=== PATIENT | female | born 1985 | race Caucasian/White ===

== ENCOUNTER 2020-10-05 20:33 | Emergency (ER) | payer OTHER ==
[2020-10-05 20:45] VITALS: RESP 18; TEMP 98.3
[2020-10-05] MEDS ORDERED: HYDROmorphone 0.5 MG/0.5 ML SYRINGE IVP STA ×2 (21:03→23:07)
[2020-10-05] MEDS ORDERED: SODIUM CHLORIDE 0.9% 1,000 ML IV STA (21:03)
[2020-10-05] MEDS ORDERED: KETOROLAC 15 MG/ML 1 ML VIAL IVP STA (21:03)
[2020-10-05] MEDS ORDERED: ONDANSETRON 4 MG/2 ML VIAL IVP STA (21:03)
--- NOTE | 2020-10-05 21:06 | ED ---
General Adult HPI - General Chief complaint: Abdominal Pain Stated complaint: abd cramps Time Seen by Provider: 10/05/20 20:46 Source: patient Mode of arrival: ambulatory Limitations: no limitations - History of Present Illness Initial comments: 35-year-old female patient presents to the emergency department today for evaluation of left lower abdominal pain. Patient states the pain started yesterday as a dull ache and has gradually worsened. Patient states today the pain is out of control. Denies radiation to her back. Denies any dysuria, hematuria, urinary frequency, urinary urgency. Denies abnormal vaginal bleeding or discharge. States she is in a monogamous relationship and is not concerned for sexually transmitted infections. Denies fever or chills but denies nausea or vomiting. Denies any constipation or diarrhea. States that she has had history of ovarian cyst with rupture she is concerned that may be going on again. She does have her tubes tied and does have 3 children. Patient denies any recent rash, cough, shortness of breath, chest pain, numbness, tingling, dizziness, weakness, headache, visual changes, or any other complaints. - Related Data Home Medications Medication Instructions Recorded Confirmed No Known Home Medications 10/05/20 10/05/20 Allergies Allergy/AdvReac Type Severity Reaction Status Date / Time No Known Allergies Allergy Verified 10/05/20 21:51 Review of Systems ROS Statement: Those systems with pertinent positive or pertinent negative responses have been documented in the HPI. ROS Other: All systems not noted in ROS Statement are negative. Past Medical History Past Medical History: No Reported History History of Any Multi-Drug Resistant Organisms: None Reported Past Surgical History: Section, Tubal Ligation Additional Past Surgical History / Comment(s): ovarian cyst, leep procedure. Smoking Status: Current every day smoker Past Alcohol Use History: None Reported Past Drug Use History: None Reported General Exam Limitations: no limitations General appearance: alert, in no apparent distress, other (this is a well- developed, well-nourished adult female patient in no acute distress.) Respiratory exam: Present: normal lung sounds bilaterally. Absent: respiratory distress, wheezes, rales, rhonchi, stridor Cardiovascular Exam: Present: regular rate, normal rhythm, normal heart sounds. Absent: systolic murmur, diastolic murmur, rubs, gallop, clicks GI/Abdominal exam: Present: soft, tenderness (left lower quadrant), normal bowel sounds. Absent: distended, guarding, rebound, rigid Neurological exam: Present: alert, oriented X3, CN II-XII intact Psychiatric exam: Present: normal affect, normal mood Skin exam: Present: warm, dry, intact, normal color. Absent: rash Course Vital Signs 10/05/20 10/05/20 20:42 22:45 Temperature 98.3 F 98.3 F Pulse Rate 98 67 Respiratory 18 18 Rate Blood Pressure 147/86 116/75 O2 Sat by Pulse 99 100 Oximetry Medical Decision Making - Medical Decision Making 35-year-old female patient presents to the emergency department today for evaluation of left lower quadrant abdominal pain. Physical examination did reveal some tenderness over the left lower quadrant pelvic region. She denied fever, diarrhea, vomiting, abnormal vaginal bleeding or discharge. Denied urin brandi symptoms. Labs reviewed and were unremarkable. Transvaginal ultrasound was obtained due to patient's history of cysts and showed no evidence for solid adnexal mass. There is some free fluid in the cul-de-sac. Upon reevaluation patient is resting comfortably in bed. Did discuss all findings and results with her. We did discuss possibility of intra-abdominal infection more specifically diverticulitis given her area of pain. As she is currently afebrile, white blood cell count is normal, and still feeling somewhat better she does choose to go home and monitor symptoms. She is instructed to follow up with her primary care physician for recheck in 1-2 days. We did discuss return parameters and great detail. She verbalizes understanding and agrees with this plan. Case discussed with my attending Dr. Vanegas. - Lab Data Result diagrams: 10/05/20 21:13 10/05/20 21:13 Lab Results 10/05/20 10/05/20 10/05/20 Range/Units 21:13 21:13 21:13 WBC 10.6 (3.8-10.6) k/uL RBC 5.06 (3.80-5.40) m/uL Hgb 14.6 (11.4-16.0) gm/dL Hct 44.2 (34.0-46.0) % MCV 87.3 (80.0-100.0) fL MCH 28.8 (25.0-35.0) pg MCHC 33.0 (31.0-37.0) g/dL RDW 13.3 (11.5-15.5) % Plt Count 188 (150-450) k/uL MPV 7.3 Neutrophils % 68 % Lymphocytes % 22 % Monocytes % 5 % Eosinophils % 3 % Basophils % 0 % Neutrophils # 7.2 (1.3-7.7) k/uL Lymphocytes # 2.3 (1.0-4.8) k/uL Monocytes # 0.6 (0-1.0) k/uL Eosinophils # 0.4 (0-0.7) k/uL Basophils # 0.1 (0-0.2) k/uL Sodium (137-145) mmol/L Potassium (3.5-5.1) mmol/L Chloride (98-107) mmol/L Carbon Dioxide (22-30) mmol/L Anion Gap mmol/L BUN (7-17) mg/dL Creatinine (0.52-1.04) mg/dL Est GFR (CKD-EPI)AfAm (>60 ml/min/1.73 sqM) Est GFR (CKD-EPI)NonAf (>60 ml/min/1.73 sqM) Glucose (74-99) mg/dL Plasma Lactic Acid [place] (0.7-2.0) mmol/L Calcium (8.4-10.2) mg/dL Total Bilirubin (0.2-1.3) mg/dL AST (14-36) U/L ALT (4-34) U/L Alkaline Phosphatase (38-126) U/L Total Protein (6.3-8.2) g/dL Albumin (3.5-5.0) g/dL Amylase (30-110) U/L Lipase (23-300) U/L Urine Color Yellow Urine Appearance Cloudy H (Clear) Urine pH 7.0 (5.0-8.0) Ur Specific [place] 1.021 (1.001-1.035) Urine Protein Negative (Negative) Urine Glucose (UA) Negative (Negative) Urine Ketones Negative (Negative) Urine Blood Negative (Negative) Urine Nitrite Negative (Negative) Urine Bilirubin Negative (Negative) Urine Urobilinogen 3.0 (<2.0) mg/dL Ur Leukocyte Esterase Negative (Negative) Urine RBC 1 (0-5) /hpf Urine WBC 1 (0-5) /hpf Ur Squamous Epith Cells 13 H (0-4) /hpf Urine Mucus Rare H (None) /hpf Urine HCG, Qual Not Detected (Not Detectd) 10/05/20 10/05/20 Range/Units 21:13 21:13 WBC (3.8-10.6) k/uL RBC (3.80-5.40) m/uL Hgb (11.4-16.0) gm/dL Hct (34.0-46.0) % MCV (80.0-100.0) fL MCH (25.0-35.0) pg MCHC (31.0-37.0) g/dL RDW (11.5-15.5) % Plt Count (150-450) k/uL MPV Neutrophils % % Lymphocytes % % Monocytes % % Eosinophils % % Basophils % % Neutrophils # (1.3-7.7) k/uL Lymphocytes # (1.0-4.8) k/uL Monocytes # (0-1.0) k/uL Eosinophils # (0-0.7) k/uL Basophils # (0-0.2) k/uL Sodium 138 (137-145) mmol/L Potassium 4.0 (3.5-5.1) mmol/L Chloride 107 (98-107) mmol/L Carbon Dioxide 21 L (22-30) mmol/L Anion Gap 10 mmol/L BUN 13 (7-17) mg/dL Creatinine 0.90 (0.52-1.04) mg/dL Est GFR (CKD-EPI)AfAm >90 (>60 ml/min/1.73 sqM) Est GFR (CKD-EPI)NonAf 84 (>60 ml/min/1.73 sqM) Glucose 105 H (74-99) mg/dL Plasma Lactic Acid [place] 1.0 (0.7-2.0) mmol/L Calcium 8.7 (8.4-10.2) mg/dL Total Bilirubin 0.3 (0.2-1.3) mg/dL AST 18 (14-36) U/L ALT 19 (4-34) U/L Alkaline Phosphatase 48 (38-126) U/L Total Protein 6.8 (6.3-8.2) g/dL Albumin 3.9 (3.5-5.0) g/dL Amylase 44 (30-110) U/L Lipase 204 (23-300) U/L Urine Color Urine Appearance (Clear) Urine pH (5.0-8.0) Ur Specific [place] (1.001-1.035) Urine Protein (Negative) Urine Glucose (UA) (Negative) Urine Ketones (Negative) Urine Blood (Negative) Urine Nitrite (Negative) Urine Bilirubin (Negative) Urine Urobilinogen (<2.0) mg/dL Ur Leukocyte Esterase (Negative) Urine RBC (0-5) /hpf Urine WBC (0-5) /hpf Ur Squamous Epith Cells (0-4) /hpf Urine Mucus (None) /hpf Urine HCG, Qual (Not Detectd) - Radiology Data Radiology results: report reviewed Transvaginal ultrasound was obtained. Report reviewed in its entirety. Impression by Dr. Veronica shows some free fluid in the cul-de-sac. Cervical cyst noted. No sign of lid adnexal mass. No evidence of left-sided ovarian torsion. Right ovary not well seen. No evidence of endometrial mass. Endometrium not well seen. Disposition Clinical Impression: Abdominal pain Disposition: HOME SELF-CARE Condition: Good Instructions (If sedation given, give patient instructions): Abdominal Pain (ED) Additional Instructions: Take medications as directed. Follow up with your primary care physician for recheck in 1-2 days. Return to the emergency department for further evaluation for any new, worsening, or concerning symptoms. Is patient prescribed a controlled substance at d/c from ED?: No Referrals: Amadeo Nieves DO [Primary Care Provider] - 1-2 days Time of Disposition: 23:07
[2020-10-05 21:35] LABS: Basophils # (A) 0.1 k/uL (0-0.2); Basophils % (A) 0 %; Eosinophils # (A) 0.4 k/uL (0-0.7); Eosinophils % (A) 3 %; HCT 44.2 % (34.0-46.0); HGB 14.6 gm/dL (11.4-16.0); Lymphocytes # (A) 2.3 k/uL (1.0-4.8); Lymphocytes % (A) 22 %; MCH 28.8 pg (25.0-35.0); MCV 87.3 fL (80.0-100.0); Mean Platelet Volume 7.3; Monocytes # (A) 0.6 k/uL (0-1.0); Monocytes % (A) 5 %; Neutrophils # (A) 7.2 k/uL (1.3-7.7); Neutrophils % (A) 68 %; Platelet Count 188 k/uL (150-450); RBC 5.06 m/uL (3.80-5.40); RDW 13.3 % (11.5-15.5); WBC 10.6 k/uL (3.8-10.6)
[2020-10-05 21:38] LABS: Appearance,Urine Cloudy (Clear); Bilirubin,Urine Negative (Negative); Blood,Urine Negative (Negative); Color,Urine Yellow; Glucose,Urine (UA) Negative (Negative); Ketones,Urine Negative (Negative); Leukocyte Esterase,Urine Negative (Negative); Mucus,Urine Rare /hpf; Nitrite,Urine Negative (Negative); Protein,Urine Negative (Negative); RBC,Urine 1 /hpf (0-5); Specific Gravity,Urine 1.021 (1.001-1.035); Squamous Epithelial Cell,Urine 13 /hpf (0-4); WBC,Urine 1 /hpf (0-5)
[2020-10-05 21:51] LABS: ALT 19 U/L (4-34); AST 18 U/L (14-36); African American GFR (CKD) >90 (>60 ml/min/1.73 sqM); Albumin 3.9 g/dL (3.5-5.0); Alkaline Phosphatase 48 U/L (38-126); Amylase 44 U/L (30-110); Anion Gap 10 mmol/L; Blood Urea Nitrogen 13 mg/dL (7-17); Calcium 8.7 mg/dL (8.4-10.2); Carbon Dioxide 21 mmol/L (22-30); Chloride 107 mmol/L (98-107); Glucose 105 mg/dL (74-99); Lipase 204 U/L (23-300); Non-African American GFR(CKD) 84 (>60 ml/min/1.73 sqM); Sodium 138 mmol/L (137-145); Total Bilirubin 0.3 mg/dL (0.2-1.3); Total Protein 6.8 g/dL (6.3-8.2)
--- NOTE | 2020-10-05 22:50 | US ---
EXAMINATION TYPE: US transvaginal DATE OF EXAM: 10/05/2020 COMPARISON: NONE CLINICAL HISTORY: Left pelvic pain; hx cysts. Left pelvic pain x 2 days. Hx 3 C-Sections, tubal ligat ion, LEEP x 2, ablation 2011 (LMP 2011), Cyst removal from left ovary.. TECHNIQUE: Transvaginal (TV). Date of LMP: 2011 EXAM MEASUREMENTS: Uterus: 7.8 x 4.2 x 3.3 cm Endometrial Stripe: Not well seen. Right Ovary: Not visualized. Left Ovary: 3.3 x 2.1 x 2.9 cm. 1. Uterus: Anteverted. Appears to be heterogeneous. Complex area seen lower uterus/cervix measuring 1.1 x 1.1 x 1.2 cm. Anechoic area seen in cervix measuring 0.9 x 1.0 x 0.9 cm. Septated anechoic area seen mid uterus measuring 1.3 x 1.2 x 0.7 cm. Anechoic area seen upper left uterus measuring 0.9 x 1 .1 x 0.9 cm. 2. Endometrium: Not well seen. 3. Right Ovary: Not seen. 4. Left Ovary: Slightly hyperechoic-isoechoic area with peripheral vascularity seen measuring 1.6 x 1 .6 x 1.2 cm. Anechoic area seen measuring 1.0 x 0.9 x 0.8 cm. Spectral, color and waveform doppler imaging shows arterial and venous flow within the left ovary. Right ovary not seen. 5. Bilateral Adnexa: Anechoic fluid-appearing area seen in left adnexa adjacent to the left ovary me asuring 1.1 x 1.3 x 0.7 cm. 6. Posterior cul-de-sac: Fluid seen measuring 2.1 x 2.2 x 1.3 cm. IMPRESSION: There is some free fluid in the cul-de-sac. Cervical cysts noted. No solid adnexal mass. No evidence of left-sided ovarian torsion. Right ovary not well seen. No evidence of endometrial mass. Endometriu m not well seen.
[2020-10-05] MEDS ORDERED: ACET/COD 300 MG/30 MG STARTER PACK 6 TAB BTL PO STA (23:07)
[2020-10-05 23:22] VITALS: BP 123/65; PULSE 77
== END 2020-10-05 23:21 | disposition home or self-care (01) ==
LOC: EC 20:33
DX: R10.32 Left lower quadrant pain (principal); R10.814 Left lower quadrant abdominal tenderness; F17.200 Nicotine dependence, unspecified, uncomplicated
CPT/HCPCS: 36415; 80053; 82150; 83605; 83690; 85025; 81001; 81025; 93976; 76830; 99284; 96374; 96375 ×2; 96376; 96361 ×2; J2405; J1885; J1170

== ENCOUNTER → 2021-01-27 | Outpatient (CLI) | payer OTHER | END | disposition home or self-care (01) | LOC: LABWHC1 08:26 | PROVIDERS: ATTEND Nurse Practitioner Adult Health | DX: Z53.9 Procedure and treatment not carried out, unspecified reason (principal) ==

== ENCOUNTER 2021-02-28 15:17 | Emergency (ER) | payer OTHER ==
[2021-02-28 15:21] VITALS: RESP 16
[2021-02-28] MEDS ORDERED: SODIUM CHLORIDE 0.9% 1,000 ML IV STA (15:32)
[2021-02-28] MEDS ORDERED: ONDANSETRON 4 MG/2 ML VIAL IVP STA (15:32)
--- NOTE | 2021-02-28 15:39 | ED ---
Abdominal Pain HPI - General Chief Complaint: Abdominal Pain Stated Complaint: Abd Pain Source: patient, RN notes reviewed, old records reviewed Mode of arrival: ambulatory Limitations: no limitations - History of Present Illness Initial Comments: 35-year-old white female patient, alert and oriented 4, presents to the emergency room with complaints of 2 days of. Umbilical and right sided abdominal pain. Patient states that 2 days ago she awoke with. Umbilical pain and vomiting. For the rest of the day she had a sharp pain on the right mid side of her abdomen. Patient states that today she went to work but had to leave because the pain. She states that laying flat makes it worse nothing makes it feel better. She denies any fevers but does state that she has some nausea. She describes the pain as sharp, states that the ride to the hospital caused increasing pain with every bump. She does have history of ovarian cysts but this is not the same pain. Patient is a pack-a-day smoker. MD Complaint: abdominal pain -: days(s) (2) Location: periumbilical, RUQ, RLQ Radiation: none Severity scale (1-10): 9 Quality: sharp Consistency: constant Improves With: nothing Worsens With: other (lying flat) Associated Symptoms: nausea, vomiting - Related Data Previous Rx's Medication Instructions Recorded Ibuprofen [Motrin] 600 mg PO Q8HR PRN #30 tab 02/28/21 Allergies Allergy/AdvReac Type Severity Reaction Status Date / Time No Known Allergies Allergy Verified 02/28/21 15:19 Review of Systems ROS Statement: Those systems with pertinent positive or pertinent negative responses have been documented in the HPI. ROS Other: All systems not noted in ROS Statement are negative. Past Medical History Past Medical History: No Reported History History of Any Multi-Drug Resistant Organisms: None Reported Past Surgical History: Section, Tubal Ligation Additional Past Surgical History / Comment(s): ovarian cyst, leep procedure. Past Psychological History: Bipolar Smoking Status: Current every day smoker Past Alcohol Use History: None Reported Past Drug Use History: None Reported General Exam Limitations: no limitations General appearance: alert, in no apparent distress Head exam: Present: atraumatic, normocephalic, normal inspection Eye exam: Present: normal appearance, PERRL, EOMI. Absent: scleral icterus, conjunctival injection, periorbital swelling ENT exam: Present: normal exam, mucous membranes dry Neck exam: Present: normal inspection, full ROM. Absent: tenderness, meningismus, lymphadenopathy, thyromegaly Respiratory exam: Present: normal lung sounds bilaterally. Absent: respiratory distress, wheezes, rales, rhonchi, stridor, chest wall tenderness, accessory muscle use, decreased breath sounds, prolonged expiratory Cardiovascular Exam: Present: regular rate, normal rhythm, normal heart sounds. Absent: systolic murmur, diastolic murmur, rubs, gallop, clicks GI/Abdominal exam: Present: soft, tenderness (Right upper and right lower quadrant), normal bowel sounds. Absent: distended, guarding, rigid, mass, hernia Extremities exam: Present: full ROM, normal capillary refill. Absent: tenderness, pedal edema, calf tenderness Back exam: Present: normal inspection, full ROM. Absent: tenderness, CVA tenderness (R), CVA tenderness (L), muscle spasm, paraspinal tenderness, vertebral tenderness, rash noted Neurological exam: Present: alert, oriented X3, CN II-XII intact Psychiatric exam: Present: normal affect, normal mood Skin exam: Present: warm, dry, intact, normal color. Absent: rash, cyanosis, diaphoretic, erythema, petechiae, pallor, mottled Course Vital Signs 02/28/21 15:19 Temperature 97.5 F L Pulse Rate 88 Respiratory 16 Rate Blood Pressure 136/88 O2 Sat by Pulse 99 Oximetry Medical Decision Making - Medical Decision Making Hemoglobin and hematocrit is stable at 15 and 46 respectively, WBC count is 9.8, electrolytes are within normal limits. There is a 2.1 cm right ovarian cyst and a right renal calculi that is not obstructing. This is likely the cause of the patient's right-sided abdominal pain. She will be prescribed Motrin and directed to follow up with her primary care doctor and also given a referral for urology. She does state that she had a kidney stone when she was 16 years old. Case discussed with Dr. Lopez. - Lab Data Result diagrams: 02/28/21 15:38 02/28/21 15:38 Lab Results 02/28/21 02/28/21 02/28/21 Range/Units 15:38 15:38 15:38 WBC 9.8 (3.8-10.6) k/uL RBC 5.41 H (3.80-5.40) m/uL Hgb 15.2 (11.4-16.0) gm/dL Hct 46.5 H (34.0-46.0) % MCV 86.0 (80.0-100.0) fL MCH 28.0 (25.0-35.0) pg MCHC 32.6 (31.0-37.0) g/dL RDW 13.5 (11.5-15.5) % Plt Count 184 (150-450) k/uL MPV 7.6 Neutrophils % 73 % Lymphocytes % 18 % Monocytes % 5 % Eosinophils % 2 % Basophils % 1 % Neutrophils # 7.2 (1.3-7.7) k/uL Lymphocytes # 1.7 (1.0-4.8) k/uL Monocytes # 0.5 (0-1.0) k/uL Eosinophils # 0.2 (0-0.7) k/uL Basophils # 0.1 (0-0.2) k/uL PT 9.7 (9.0-12.0) sec INR 0.9 (<1.2) APTT 23.8 (22.0-30.0) sec Sodium (137-145) mmol/L Potassium (3.5-5.1) mmol/L Chloride (98-107) mmol/L Carbon Dioxide (22-30) mmol/L Anion Gap mmol/L BUN (7-17) mg/dL Creatinine (0.52-1.04) mg/dL Est GFR (CKD-EPI)AfAm (>60 ml/min/1.73 sqM) Est GFR (CKD-EPI)NonAf (>60 ml/min/1.73 sqM) Glucose (74-99) mg/dL Calcium (8.4-10.2) mg/dL Total Bilirubin (0.2-1.3) mg/dL AST (14-36) U/L ALT (4-34) U/L Alkaline Phosphatase (38-126) U/L Total Protein (6.3-8.2) g/dL Albumin (3.5-5.0) g/dL Amylase (30-110) U/L Lipase (23-300) U/L Urine Color Yellow Urine Appearance Cloudy H (Clear) Urine pH 6.5 (5.0-8.0) Ur Specific [place] 1.024 (1.001-1.035) Urine Protein Trace H (Negative) Urine Glucose (UA) Negative (Negative) Urine Ketones Negative (Negative) Urine Blood Negative (Negative) Urine Nitrite Negative (Negative) Urine Bilirubin Negative (Negative) Urine Urobilinogen 2.0 (<2.0) mg/dL Ur Leukocyte Esterase Negative (Negative) Urine RBC 2 (0-5) /hpf Urine WBC 1 (0-5) /hpf Ur Squamous Epith Cells 23 H (0-4) /hpf Urine Mucus Moderate H (None) /hpf Urine HCG, Qual (Not Detectd) 02/28/21 02/28/21 Range/Units 15:38 15:38 WBC (3.8-10.6) k/uL RBC (3.80-5.40) m/uL Hgb (11.4-16.0) gm/dL Hct (34.0-46.0) % MCV (80.0-100.0) fL MCH (25.0-35.0) pg MCHC (31.0-37.0) g/dL RDW (11.5-15.5) % Plt Count (150-450) k/uL MPV Neutrophils % % Lymphocytes % % Monocytes % % Eosinophils % % Basophils % % Neutrophils # (1.3-7.7) k/uL Lymphocytes # (1.0-4.8) k/uL Monocytes # (0-1.0) k/uL Eosinophils # (0-0.7) k/uL Basophils # (0-0.2) k/uL PT (9.0-12.0) sec INR (<1.2) APTT (22.0-30.0) sec Sodium 140 (137-145) mmol/L Potassium 4.2 (3.5-5.1) mmol/L Chloride 105 (98-107) mmol/L Carbon Dioxide 25 (22-30) mmol/L Anion Gap 10 mmol/L BUN 9 (7-17) mg/dL Creatinine 0.79 (0.52-1.04) mg/dL Est GFR (CKD-EPI)AfAm >90 (>60 ml/min/1.73 sqM) Est GFR (CKD-EPI)NonAf >90 (>60 ml/min/1.73 sqM) Glucose 106 H (74-99) mg/dL Calcium 9.3 (8.4-10.2) mg/dL Total Bilirubin 0.2 (0.2-1.3) mg/dL AST 17 (14-36) U/L ALT 17 (4-34) U/L Alkaline Phosphatase 56 (38-126) U/L Total Protein 7.1 (6.3-8.2) g/dL Albumin 4.3 (3.5-5.0) g/dL Amylase 57 (30-110) U/L Lipase 189 (23-300) U/L Urine Color Urine Appearance (Clear) Urine pH (5.0-8.0) Ur Specific [place] (1.001-1.035) Urine Protein (Negative) Urine Glucose (UA) (Negative) Urine Ketones (Negative) Urine Blood (Negative) Urine Nitrite (Negative) Urine Bilirubin (Negative) Urine Urobilinogen (<2.0) mg/dL Ur Leukocyte Esterase (Negative) Urine RBC (0-5) /hpf Urine WBC (0-5) /hpf Ur Squamous Epith Cells (0-4) /hpf Urine Mucus (None) /hpf Urine HCG, Qual Not Detected (Not Detectd) Disposition Clinical Impression: Ovarian cyst, Kidney stone on right side Disposition: HOME SELF-CARE Condition: Fair Instructions (If sedation given, give patient instructions): Ovarian Cyst (ED), Kidney Stones (ED) Additional Instructions: Take Motrin every 6-8 hours as needed for pain follow-up with the primary care doctor in 1 week. Prescriptions: Ibuprofen [Motrin] 600 mg PO Q8HR PRN #30 tab PRN Reason: Pain Is patient prescribed a controlled substance at d/c from ED?: No Referrals: Jackelin Alejandro NPC [Primary Care Provider] - 1-2 days Harris Collier MD [STAFF PHYSICIAN] - 1-2 days Time of Disposition: 17:02
[2021-02-28 15:59] LABS: Appearance,Urine Cloudy (Clear); Bilirubin,Urine Negative (Negative); Blood,Urine Negative (Negative); Color,Urine Yellow; Glucose,Urine (UA) Negative (Negative); Ketones,Urine Negative (Negative); Leukocyte Esterase,Urine Negative (Negative); Mucus,Urine Moderate /hpf; Nitrite,Urine Negative (Negative); PH, Urine 6.5 (5.0-8.0); Protein,Urine Trace (Negative); RBC,Urine 2 /hpf (0-5); Specific Gravity,Urine 1.024 (1.001-1.035); Squamous Epithelial Cell,Urine 23 /hpf (0-4); WBC,Urine 1 /hpf (0-5)
[2021-02-28 16:06] LABS: ALT 17 U/L (4-34); AST 17 U/L (14-36); African American GFR (CKD) >90 (>60 ml/min/1.73 sqM); Albumin 4.3 g/dL (3.5-5.0); Alkaline Phosphatase 56 U/L (38-126); Amylase 57 U/L (30-110); Anion Gap 10 mmol/L; Blood Urea Nitrogen 9 mg/dL (7-17); Calcium 9.3 mg/dL (8.4-10.2); Carbon Dioxide 25 mmol/L (22-30); Chloride 105 mmol/L (98-107); Glucose 106 mg/dL (74-99); Lipase 189 U/L (23-300); Non-African American GFR(CKD) >90 (>60 ml/min/1.73 sqM); Potassium 4.2 mmol/L (3.5-5.1); Sodium 140 mmol/L (137-145); Total Bilirubin 0.2 mg/dL (0.2-1.3); Total Protein 7.1 g/dL (6.3-8.2)
[2021-02-28 16:08] LABS: Basophils # (A) 0.1 k/uL (0-0.2); Basophils % (A) 1 %; Eosinophils # (A) 0.2 k/uL (0-0.7); Eosinophils % (A) 2 %; HCT 46.5 % (34.0-46.0); HGB 15.2 gm/dL (11.4-16.0); Lymphocytes # (A) 1.7 k/uL (1.0-4.8); Lymphocytes % (A) 18 %; MCHC 32.6 g/dL (31.0-37.0); Mean Platelet Volume 7.6; Monocytes # (A) 0.5 k/uL (0-1.0); Monocytes % (A) 5 %; Neutrophils # (A) 7.2 k/uL (1.3-7.7); Neutrophils % (A) 73 %; Platelet Count 184 k/uL (150-450); RBC 5.41 m/uL (3.80-5.40); RDW 13.5 % (11.5-15.5); WBC 9.8 k/uL (3.8-10.6)
[2021-02-28 16:11] LABS: INR 0.9 (<1.2); Partial Thromboplastin Time 23.8 sec (22.0-30.0); Prothrombin Time 9.7 sec (9.0-12.0)
--- NOTE | 2021-02-28 16:43 | CT ---
EXAMINATION TYPE: CT abdomen pelvis wo con DATE OF EXAM: 02/28/2021 COMPARISON: None available. HISTORY: periumbilical to right flank pain CT DLP: 1107.9 mGycm Automated exposure control for dose reduction was used. TECHNIQUE: Helical acquisition of images was performed from the lung bases through the pelvis. FINDINGS: LUNG BASES: No significant abnormality is appreciated. LIVER/GB: No acute abnormality is appreciated. Hepatomegaly. PANCREAS: No significant abnormality is seen. SPLEEN: No significant abnormality is seen. ADRENALS: No significant abnormality is seen. KIDNEYS: Punctate nonobstructing right renal calculus. No bilateral hydronephrosis or left nephrolith iasis. FREE AIR: No free air is visualized RETROPERITONEAL ADENOPATHY: None visualized REPRODUCTIVE ORGANS: No significant abnormality is seen URINARY BLADDER: Partially decompressed with mild wall thickening. PELVIC ADENOPATHY: None visualized. OSSEOUS STRUCTURES: No significant abnormality is seen. BOWEL: No significant abnormality is seen. Normal appendix. OTHER: 2.1 cm simple right ovarian cyst and smaller similar left ovarian cyst present. IMPRESSION: NO ACUTE ABNORMALITY. INCIDENTAL SIMPLE RIGHT OVARIAN CYSTS. NONOBSTRUCTING PUNCTATE RIGHT RENAL CALCULUS.
[2021-02-28] MEDS ORDERED: KETOROLAC 15 MG/ML 1 ML VIAL IVP STA (17:00)
[2021-02-28 17:37] VITALS: BP 128/78; PULSE 78; TEMP 98.2
== END 2021-02-28 17:36 | disposition home or self-care (01) ==
LOC: EC 15:17
DX: N20.0 Calculus of kidney (principal); N83.201 Unspecified ovarian cyst, right side; F31.9 Bipolar disorder, unspecified; F17.210 Nicotine dependence, cigarettes, uncomplicated
CPT/HCPCS: 36415; 80053; 82150; 83690; 85025; 85610; 85730; 81001; 81025; 74176; 99284; 96374; 96375; 96361; J2405; J1885

== ENCOUNTER 2021-03-03 23:47 | Emergency (ER) | payer OTHER ==
[2021-03-03 23:58] VITALS: RESP 20; TEMP 98.6
[2021-03-04] MEDS ORDERED: SODIUM CHLORIDE 0.9% 1,000 ML IV STA (00:07)
[2021-03-04] MEDS ORDERED: KETOROLAC 15 MG/ML 1 ML VIAL IVP STA (00:07)
[2021-03-04] MEDS ORDERED: ONDANSETRON 4 MG/2 ML VIAL IVP STA (00:07)
[2021-03-04 00:31] LABS: Basophils # (A) 0.1 k/uL (0-0.2); Basophils % (A) 1 %; Eosinophils # (A) 0.2 k/uL (0-0.7); Eosinophils % (A) 2 %; HCT 44.8 % (34.0-46.0); HGB 14.6 gm/dL (11.4-16.0); Lymphocytes # (A) 1.8 k/uL (1.0-4.8); Lymphocytes % (A) 18 %; MCH 27.9 pg (25.0-35.0); MCHC 32.5 g/dL (31.0-37.0); MCV 85.9 fL (80.0-100.0); Mean Platelet Volume 7.5; Monocytes # (A) 0.5 k/uL (0-1.0); Monocytes % (A) 5 %; Neutrophils # (A) 7.3 k/uL (1.3-7.7); Neutrophils % (A) 73 %; Platelet Count 186 k/uL (150-450); RBC 5.22 m/uL (3.80-5.40); RDW 13.5 % (11.5-15.5)
--- NOTE | 2021-03-04 00:46 | XR ---
EXAMINATION TYPE: XR KUB DATE OF EXAM: 03/04/2021 COMPARISON: NONE HISTORY: Right lower quadrant pain TECHNIQUE: 2 views FINDINGS: Bowel gas pattern is normal. There is no sign of intestinal obstruction or pneumoperitoneum . Fecal pattern is normal. There is no evidence of a mass. There are no pathologic calcifications ove r the kidneys. IMPRESSION: Nonacute abdomen.
[2021-03-04 00:53] LABS: ALT 52 U/L (4-34); AST 84 U/L (14-36); African American GFR (CKD) >90 (>60 ml/min/1.73 sqM); Albumin 4.2 g/dL (3.5-5.0); Alkaline Phosphatase 80 U/L (38-126); Anion Gap 8 mmol/L; Blood Urea Nitrogen 11 mg/dL (7-17); Calcium 9.2 mg/dL (8.4-10.2); Carbon Dioxide 25 mmol/L (22-30); Chloride 108 mmol/L (98-107); Glucose 101 mg/dL (74-99); Non-African American GFR(CKD) >90 (>60 ml/min/1.73 sqM); Sodium 141 mmol/L (137-145); Total Bilirubin 0.4 mg/dL (0.2-1.3); Total Protein 6.8 g/dL (6.3-8.2)
--- NOTE | 2021-03-04 01:01 | ED ---
Abdominal Pain HPI - General Chief Complaint: Abdominal Pain Stated Complaint: Abd Pain Time Seen by Provider: 03/03/21 23:59 Source: patient, RN notes reviewed Mode of arrival: ambulatory - History of Present Illness Initial Comments: Patient is a 35-year-old female that presents to the emergency department complaining of right flank pain. She was recently seen 3 days ago was diagnosed with kidney stone and ovarian cyst. states that she has not been drinking very much water and/or taking her Motrin. She notes that she's been taking Tylenol 3. She notes that she just been drinking lots of cranberry juice and other juices. Patient did appear to be in moderate amounts discomfort and pain while laying on her right side during the exam interview. She denied any other issues such as chest pain shortness of breath headache diarrhea constipation fever fatigue chills. - Related Data Previous Rx's Medication Instructions Recorded Ibuprofen [Motrin] 600 mg PO Q8HR PRN #30 tab 02/28/21 Ibuprofen [Motrin] 800 mg PO Q6HR #30 tab 03/04/21 Allergies Allergy/AdvReac Type Severity Reaction Status Date / Time No Known Allergies Allergy Verified 03/04/21 00:02 Review of Systems ROS Statement: Those systems with pertinent positive or pertinent negative responses have been documented in the HPI. ROS Other: All systems not noted in ROS Statement are negative. Past Medical History Past Medical History: No Reported History History of Any Multi-Drug Resistant Organisms: None Reported Past Surgical History: No Surgical Hx Reported, Section, Tubal Ligation Additional Past Surgical History / Comment(s): ovarian cyst, leep procedure. Past Psychological History: Bipolar Smoking Status: Current every day smoker Past Alcohol Use History: Occasional Past Drug Use History: None Reported General Exam General appearance: alert, in no apparent distress Head exam: Present: atraumatic, normocephalic, normal inspection Eye exam: Present: normal appearance, PERRL, EOMI. Absent: scleral icterus, conjunctival injection, periorbital swelling Neck exam: Present: normal inspection Respiratory exam: Present: normal lung sounds bilaterally. Absent: respiratory distress, wheezes, rales, rhonchi, stridor Cardiovascular Exam: Present: regular rate, normal rhythm, normal heart sounds. Absent: systolic murmur, diastolic murmur, rubs, gallop, clicks GI/Abdominal exam: Present: soft, normal bowel sounds. Absent: distended, tenderness, guarding, rebound, rigid Extremities exam: Present: normal inspection, full ROM, normal capillary refill. Absent: tenderness, pedal edema, joint swelling, calf tenderness Back exam: Present: normal inspection, CVA tenderness (R) Neurological exam: Present: alert, oriented X3 Psychiatric exam: Present: normal affect, normal mood Skin exam: Present: warm, dry, intact, normal color. Absent: rash Course Vital Signs 03/03/21 23:53 Temperature 98.6 F Pulse Rate 88 Respiratory 20 Rate Blood Pressure 127/86 O2 Sat by Pulse 98 Oximetry Medical Decision Making - Medical Decision Making 35-year-old female presented emergency department with history of kidney stones 3 days ago complaining of pain. Basic labs, KUB, 1 L normal saline, 50 mg of Toradol, 4 mg of Zofran ordered. Labs unremarkable. KUB showed nonacute abdomen. Case discussed with Dr. Vanegas, patient can discharge home with increase oral fluids and Motrin. - Lab Data Result diagrams: 03/04/21 00:13 03/04/21 00:13 Lab Results 03/04/21 03/04/21 Range/Units 00:13 00:13 WBC 10.0 (3.8-10.6) k/uL RBC 5.22 (3.80-5.40) m/uL Hgb 14.6 (11.4-16.0) gm/dL Hct 44.8 (34.0-46.0) % MCV 85.9 (80.0-100.0) fL MCH 27.9 (25.0-35.0) pg MCHC 32.5 (31.0-37.0) g/dL RDW 13.5 (11.5-15.5) % Plt Count 186 (150-450) k/uL MPV 7.5 Neutrophils % 73 % Lymphocytes % 18 % Monocytes % 5 % Eosinophils % 2 % Basophils % 1 % Neutrophils # 7.3 (1.3-7.7) k/uL Lymphocytes # 1.8 (1.0-4.8) k/uL Monocytes # 0.5 (0-1.0) k/uL Eosinophils # 0.2 (0-0.7) k/uL Basophils # 0.1 (0-0.2) k/uL Sodium 141 (137-145) mmol/L Potassium 4.0 (3.5-5.1) mmol/L Chloride 108 H (98-107) mmol/L Carbon Dioxide 25 (22-30) mmol/L Anion Gap 8 mmol/L BUN 11 (7-17) mg/dL Creatinine 0.74 (0.52-1.04) mg/dL Est GFR (CKD-EPI)AfAm >90 (>60 ml/min/1.73 sqM) Est GFR (CKD-EPI)NonAf >90 (>60 ml/min/1.73 sqM) Glucose 101 H (74-99) mg/dL Calcium 9.2 (8.4-10.2) mg/dL Total Bilirubin 0.4 (0.2-1.3) mg/dL AST 84 H (14-36) U/L ALT 52 H (4-34) U/L Alkaline Phosphatase 80 (38-126) U/L Total Protein 6.8 (6.3-8.2) g/dL Albumin 4.2 (3.5-5.0) g/dL - Radiology Data Radiology results: report reviewed, image reviewed KUB: Nonacute abdomen. Disposition Clinical Impression: Ovarian cyst, Kidney stone on right side Disposition: HOME SELF-CARE Condition: Stable Instructions (If sedation given, give patient instructions): Kidney Stones (ED) Additional Instructions: Please return to the Emergency Department if symptoms worsen or any other concerns. Take Motrin every 6 hours for pain control. Increase oral water intake, avoid juices and other sugary drinks as it can make pain worse. Follow-up primary care in the next several days Is patient prescribed a controlled substance at d/c from ED?: No Referrals: Luís Grider MD [Primary Care Provider] - 1-2 days Time of Disposition: 01:00
[2021-03-04 01:28] VITALS: BP 110/68; PULSE 85
== END 2021-03-04 01:20 | disposition home or self-care (01) ==
LOC: EC 23:47
DX: N20.0 Calculus of kidney (principal); N83.201 Unspecified ovarian cyst, right side; F31.9 Bipolar disorder, unspecified; F17.200 Nicotine dependence, unspecified, uncomplicated
CPT/HCPCS: 36415; 80053; 85025; 74018; 99284; 96374; 96375; 96361; J2405; J1885

== ENCOUNTER 2021-11-09 08:43 | Emergency (ER) | payer OTHER ==
[2021-11-09 08:50] VITALS: BP 118/84; PULSE 87; RESP 18; TEMP 98.6
--- NOTE | 2021-11-09 09:11 | ED ---
ENT HPI - General Chief complaint: ENT Stated complaint: Ear Ache Time Seen by Provider: 11/09/21 08:52 Source: patient, RN notes reviewed, old records reviewed Mode of arrival: ambulatory Limitations: no limitations - History of Present Illness Initial comments: Patient is a 36-year-old female who presents emergency department today with onset of left ear pain for the past 12 hours. Patient reports she was diagnosed with COVID-19 infection earlier this week. She complains of sinus congestion, body aches, and most recent symptom of severe left ear pain. She reports she's had no previous history of ear infections. She states she has not taken any decongestants medications. She denies any recent fever. Patient denies any cough, chest pain or shortness of breath. - Related Data Previous Rx's Medication Instructions Recorded Ibuprofen [Motrin] 600 mg PO Q8HR PRN #30 tab 02/28/21 Ibuprofen [Motrin] 800 mg PO Q6HR #30 tab 03/04/21 Amoxicillin 500 mg PO TID #30 capsule 11/09/21 Allergies Allergy/AdvReac Type Severity Reaction Status Date / Time No Known Allergies Allergy Verified 03/04/21 00:02 Review of Systems ROS Statement: Those systems with pertinent positive or pertinent negative responses have been documented in the HPI. ROS Other: All systems not noted in ROS Statement are negative. Past Medical History Past Medical History: No Reported History History of Any Multi-Drug Resistant Organisms: None Reported Past Surgical History: No Surgical Hx Reported, Section, Tubal Ligation Additional Past Surgical History / Comment(s): ovarian cyst, leep procedure. Past Psychological History: Bipolar Smoking Status: Current every day smoker Past Alcohol Use History: Occasional Past Drug Use History: None Reported General Exam - General Exam Comments Initial Comments: 36-year-old female. Alert and oriented. No distress. Limitations: no limitations General appearance: alert, in no apparent distress Head exam: Present: atraumatic, normocephalic, normal inspection Eye exam: Present: normal appearance, PERRL, EOMI. Absent: scleral icterus, conjunctival injection, periorbital swelling ENT exam: Present: normal exam, mucous membranes moist. Absent: TM's normal bilaterally ( is erythematous and bulging left TM. Evidence of effusion.) Neck exam: Present: normal inspection. Absent: tenderness, meningismus, lymphadenopathy Respiratory exam: Present: normal lung sounds bilaterally. Absent: respiratory distress, wheezes, rales, rhonchi, stridor Cardiovascular Exam: Present: regular rate, normal rhythm, normal heart sounds. Absent: systolic murmur, diastolic murmur, rubs, gallop, clicks Extremities exam: Present: normal inspection, full ROM, normal capillary refill. Absent: tenderness, pedal edema, joint swelling, calf tenderness Back exam: Present: normal inspection Neurological exam: Present: alert, oriented X3, CN II-XII intact Psychiatric exam: Present: normal affect, normal mood Skin exam: Present: warm, dry, intact, normal color. Absent: rash Course Vital Signs 11/09/21 08:47 Temperature 98.6 F Pulse Rate 87 Respiratory 18 Rate Blood Pressure 118/84 O2 Sat by Pulse 96 Oximetry Medical Decision Making - Medical Decision Making 36-year-old female recent history of COVID-19 infection presents with 1 day of left ear pain. Patient is evidence of an erythematous and bulging left TM. Discusses likely viral related but indicates is bacterial infection will treat the Patient with amoxicillin. Discussed using decongestant medication. Advised Motrin Tylenol for pain. Advised following up with PCP return to the ER for worsening signs or symptoms occur. Patient understands treatment plan will comply. Disposition Clinical Impression: COVID, Otitis media Disposition: HOME SELF-CARE Condition: Good Instructions (If sedation given, give patient instructions): Earache (ED) Additional Instructions: Take motrin and tylenol for pain. Take OTC decongestant like sudafed, nyquil, or tylenol cold and sinus. Warm compress to ear. Follow up with PCP or Return to ER if any alarming signs or symptoms occur. Prescriptions: Amoxicillin 500 mg PO TID #30 capsule Is patient prescribed a controlled substance at d/c from ED?: No Referrals: Luís Grider MD [Primary Care Provider] - 1-2 days Time of Disposition: 09:10
== END 2021-11-09 09:20 | disposition home or self-care (01) ==
LOC: EC 08:43
DX: U07.1 COVID-19 (principal); H66.92 Otitis media, unspecified, left ear; F17.200 Nicotine dependence, unspecified, uncomplicated
CPT/HCPCS: 99283

== ENCOUNTER 2022-02-05 11:29 | Emergency (ER) | payer OTHER ==
[2022-02-05 11:37] VITALS: TEMP 98
[2022-02-05 12:01] VITALS: BP 117/69; PULSE 93; RESP 18
[2022-02-05] MEDS ORDERED: NITROGLYCERIN OINT 1 INCH/GM PACKET TOPICAL STA (12:21)
[2022-02-05] MEDS ORDERED: SODIUM CHLORIDE 0.9% 500 ML 500 ML IV STA (12:21)
[2022-02-05] MEDS ORDERED: ASPIRIN 81 MG PO STA (12:21)
[2022-02-05 12:50] LABS: Basophils % (A) 0 %; Eosinophils # (A) 0.1 k/uL (0-0.7); Eosinophils % (A) 1 %; HCT 46.8 % (34.0-46.0); HGB 15.7 gm/dL (11.4-16.0); Lymphocytes # (A) 1.9 k/uL (1.0-4.8); Lymphocytes % (A) 19 %; MCH 29.5 pg (25.0-35.0); MCHC 33.6 g/dL (31.0-37.0); MCV 87.8 fL (80.0-100.0); Mean Platelet Volume 7.9; Monocytes # (A) 0.7 k/uL (0-1.0); Monocytes % (A) 7 %; Neutrophils # (A) 7.4 k/uL (1.3-7.7); Neutrophils % (A) 73 %; Platelet Count 221 k/uL (150-450); RBC 5.34 m/uL (3.80-5.40); RDW 13.3 % (11.5-15.5); WBC 10.2 k/uL (3.8-10.6)
[2022-02-05 12:58] LABS: INR 0.9 (<1.2); Partial Thromboplastin Time 24.2 sec (22.0-30.0); Prothrombin Time 10.3 sec (9.0-12.0)
[2022-02-05 13:04] LABS: ALT 20 U/L (4-34); AST 21 U/L (14-36); African American GFR (CKD) >90 (>60 ml/min/1.73 sqM); Albumin 4.7 g/dL (3.5-5.0); Alkaline Phosphatase 66 U/L (38-126); Anion Gap 11 mmol/L; Blood Urea Nitrogen 11 mg/dL (7-17); Calcium 9.1 mg/dL (8.4-10.2); Carbon Dioxide 21 mmol/L (22-30); Chloride 106 mmol/L (98-107); Glucose 83 mg/dL (74-99); Magnesium 2.1 mg/dL (1.6-2.3); Non-African American GFR(CKD) >90 (>60 ml/min/1.73 sqM); Potassium 3.7 mmol/L (3.5-5.1); Sodium 138 mmol/L (137-145); Total Bilirubin 0.8 mg/dL (0.2-1.3); Total Protein 7.9 g/dL (6.3-8.2)
--- NOTE | 2022-02-05 13:06 | ED ---
General Adult HPI - General Chief complaint: Chest Pain Stated complaint: Chest pain Time Seen by Provider: 02/05/22 12:00 Source: patient, RN notes reviewed, old records reviewed Mode of arrival: ambulatory Limitations: no limitations - History of Present Illness Initial comments: This is a 36-year-old female presents emergency Department stating 2 hours prior to arrival she started having left-sided chest pain that radiated to her left shoulder. Patient states she is a smoker. Patient states was no shortness of breath or difficulty breathing. Patient states he was no diaphoretic episode. Patient states she didn't feel lightheaded for a short period time. Patient states there was no nausea or abdominal pain. Patient states she is still cu rrently having chest pain. Patient denies any palpitations. Patient denies any recent fever chills or cough. Patient denies any swelling to the legs or calf tenderness. Patient denies any similar symptoms in the past. - Related Data Home Medications Medication Instructions Recorded Confirmed ARIPiprazole [Abilify] 5 mg PO DAILY 02/05/22 02/05/22 buPROPion XL [Wellbutrin XL] 300 mg PO DAILY 02/05/22 02/05/22 traZODone HCL [Desyrel] 50 mg PO HS 02/05/22 02/05/22 Allergies Allergy/AdvReac Type Severity Reaction Status Date / Time No Known Allergies Allergy Verified 02/05/22 11:37 Review of Systems ROS Statement: Those systems with pertinent positive or pertinent negative responses have been documented in the HPI. ROS Other: All systems not noted in ROS Statement are negative. Past Medical History Past Medical History: No Reported History History of Any Multi-Drug Resistant Organisms: None Reported Past Surgical History: No Surgical Hx Reported, Section, Tubal Ligation Additional Past Surgical History / Comment(s): ovarian cyst, leep procedure. Past Psychological History: Bipolar Smoking Status: Current every day smoker Past Alcohol Use History: Occasional Past Drug Use History: None Reported General Exam - General Exam Comments Initial Comments: GENERAL: Patient is well-developed and well-nourished. Patient is nontoxic and well- hydrated and is in mild distress. ENT: Neck is soft and supple. No significant lymphadenopathy is noted. Oropharynx is clear. Moist mucous membranes. Neck has full range of motion without eliciting any pain. EYES: The sclera were anicteric and conjunctiva were pink and moist. Extraocular movements were intact and pupils were equal round and reactive to light. Eyelids were unremarkable. PULMONARY: Unlabored respirations. Good breath sounds bilaterally. No audible rales rhonchi or wheezing was noted. CARDIOVASCULAR: There is a regular rate and rhythm without any murmurs gallops or rubs. ABDOMEN: Soft and nontender with normal bowel sounds. SKIN: Skin is clear with no lesions or rashes and otherwise unremarkable. NEUROLOGIC: Patient is alert and oriented x3. Cranial nerves II through XII are grossly intact. Motor and sensory are also intact. Normal speech, volume and content. Symmetrical smile. MUSCULOSKELETAL: Normal extremities with adequate strength and full range of motion. LYMPHATICS: No significant lymphadenopathy is noted PSYCHIATRIC: Normal psychiatric evaluation. Limitations: no limitations Course Vital Signs 02/05/22 02/05/22 11:34 11:55 Temperature 98 F Pulse Rate 102 H 93 Respiratory 20 18 Rate Blood Pressure 133/87 117/69 O2 Sat by Pulse 96 92 L Oximetry Medical Decision Making - Medical Decision Making EKG shows sinus rhythm at 86 bpm IN interval 250 QRS is 89 QT interval 354 QTC is 399. Patient's EKG shows no ST segment elevation or depression. Chest x-ray shows no acute abnormality I went back in the room and discussed the results with the patient I also told her she needed to stay in the hospital but she was still having chest pain. Patient stated she did not stay she refuses rectal there is possible she could go home and have a heart attack and we would not be able to intervene to she would not be in the hospital she again repeated she wanted to go home the patient will sign out AGAINST MEDICAL ADVICE. - Lab Data Result diagrams: 02/05/22 12:23 02/05/22 12:23 Lab Results 02/05/22 02/05/22 02/05/22 Range/Units 12:23 12: 12: WBC 10.2 (3.8-10.6) k/uL RBC 5.34 (3.80-5.40) m/uL Hgb 15.7 (11.4-16.0) gm/dL Hct 46.8 H (34.0-46.0) % MCV 87.8 (80.0-100.0) fL MCH 29.5 (25.0-35.0) pg MCHC 33.6 (31.0-37.0) g/dL RDW 13.3 (11.5-15.5) % Plt Count 221 (150-450) k/uL MPV 7.9 Neutrophils % 73 % Lymphocytes % 19 % Monocytes % 7 % Eosinophils % 1 % Basophils % 0 % Neutrophils # 7.4 (1.3-7.7) k/uL Lymphocytes # 1.9 (1.0-4.8) k/uL Monocytes # 0.7 (0-1.0) k/uL Eosinophils # 0.1 (0-0.7) k/uL Basophils # 0.0 (0-0.2) k/uL PT 10.3 (9.0-12.0) sec INR 0.9 (<1.2) APTT 24.2 (22.0-30.0) sec Sodium 138 (137-145) mmol/L Potassium 3.7 (3.5-5.1) mmol/L Chloride 106 (98-107) mmol/L Carbon Dioxide 21 L (22-30) mmol/L Anion Gap 11 mmol/L BUN 11 (7-17) mg/dL Creatinine 0.75 (0.52-1.04) mg/dL Est GFR (CKD-EPI)AfAm >90 (>60 ml/min/1.73 sqM) Est GFR (CKD-EPI)NonAf >90 (>60 ml/min/1.73 sqM) Glucose 83 (74-99) mg/dL Calcium 9.1 (8.4-10.2) mg/dL Magnesium 2.1 (1.6-2.3) mg/dL Total Bilirubin 0.8 (0.2-1.3) mg/dL AST 21 (14-36) U/L ALT 20 (4-34) U/L Alkaline Phosphatase 66 (38-126) U/L Troponin I (0.000-0.034) ng/mL Total Protein 7.9 (6.3-8.2) g/dL Albumin 4.7 (3.5-5.0) g/dL 02/05/22 Range/Units 12:23 WBC (3.8-10.6) k/uL RBC (3.80-5.40) m/uL Hgb (11.4-16.0) gm/dL Hct (34.0-46.0) % MCV (80.0-100.0) fL MCH (25.0-35.0) pg MCHC (31.0-37.0) g/dL RDW (11.5-15.5) % Plt Count (150-450) k/uL MPV Neutrophils % % Lymphocytes % % Monocytes % % Eosinophils % % Basophils % % Neutrophils # (1.3-7.7) k/uL Lymphocytes # (1.0-4.8) k/uL Monocytes # (0-1.0) k/uL Eosinophils # (0-0.7) k/uL Basophils # (0-0.2) k/uL PT (9.0-12.0) sec INR (<1.2) APTT (22.0-30.0) sec Sodium (137-145) mmol/L Potassium (3.5-5.1) mmol/L Chloride (98-107) mmol/L Carbon Dioxide (22-30) mmol/L Anion Gap mmol/L BUN (7-17) mg/dL Creatinine (0.52-1.04) mg/dL Est GFR (CKD-EPI)AfAm (>60 ml/min/1.73 sqM) Est GFR (CKD-EPI)NonAf (>60 ml/min/1.73 sqM) Glucose (74-99) mg/dL Calcium (8.4-10.2) mg/dL Magnesium (1.6-2.3) mg/dL Total Bilirubin (0.2-1.3) mg/dL AST (14-36) U/L ALT (4-34) U/L Alkaline Phosphatase (38-126) U/L Troponin I <0.012 (0.000-0.034) ng/mL Total Protein (6.3-8.2) g/dL Albumin (3.5-5.0) g/dL Disposition Clinical Impression: Chest pain Disposition: Left Against Medical Advice Is patient prescribed a controlled substance at d/c from ED?: No Referrals: Luís Grider MD [Primary Care Provider] - 1-2 days Time of Disposition: 14:05
--- NOTE | 2022-02-05 13:09 | XR ---
EXAMINATION TYPE: XR chest 2V DATE OF EXAM: 02/05/2022 COMPARISON: NONE HISTORY: Chest pain TECHNIQUE: Frontal and lateral views of the chest are obtained. FINDINGS: There is no focal air space opacity, pleural effusion, or pneumothorax seen. The cardiac silhouette size is within normal limits. There are overlying leads. The osseous structures are intac t. IMPRESSION: No acute cardiopulmonary process.
== END 2022-02-05 14:46 | disposition left against medical advice (07) ==
LOC: EC 11:29
DX: R07.89 Other chest pain (principal); F17.200 Nicotine dependence, unspecified, uncomplicated
CPT/HCPCS: 36415; 71046; 80053; 83735; 84484; 85025; 85610; 85730; 93005